=== PATIENT | male | born 1985 | race Caucasian/White ===

== ENCOUNTER 2025-03-17 14:45 | Emergency (ER) | payer MEDICAID, SELFPAY ==
[2025-03-17 14:46] VITALS: BMI 24.5
--- NOTE | 2025-03-17 15:21 | XR_ITS ---
Examination: Duplex scan of the lower extremity, unilateral left Date and time of exam: March 17, 2025 1532 hours INDICATIONS: Left leg swelling and pain beginning 2 days ago Technique: Duplex scan of the extremity veins using B-mode/grayscale imaging and Doppler spectral analysis and color flow Attention is directed to internal echogenicity, compression and augmentation involving these veins, color flow assessment, spectral analysis Findings: Major deep venous structures in the extremity demonstrate normal course and caliber. There is no evidence of deep vein thrombosis. Normal color flow and spectral analysis Impression: Negative for DVT..
[2025-03-17 15:25] VITALS: BP 127/84; PULSE 86; RESP 18; TEMP 36.8; O2SAT 98
--- NOTE | 2025-03-17 18:56 | PD.EDADDENDU ---
Emergency Room Addendum Addendum Narrative: When I looked for the patient to start my evaluation, I was told the patient eloped. Cristian Phoenix MD
== END 2025-03-17 21:15 | disposition left against medical advice (07) ==
PROVIDERS: Emergency Provider Emergency Medicine; PCP Family Medicine
DX: Z53.29 Procedure and treatment not carried out because of patient's decision for other reasons (principal); M79.89 Other specified soft tissue disorders; M79.605 Pain in left leg
CPT/HCPCS: 93971; 99283

== ENCOUNTER 2025-03-18 14:20 | Emergency (ER) | payer MEDICAID, SELFPAY ==
[2025-03-18 14:28] VITALS: BP 109/77; PULSE 96; RESP 18; TEMP 36.7; O2SAT 97; BMI 23.5
--- NOTE | 2025-03-18 14:42 | EDNOTE_ITS ---
<Statement entered by Meggan Padron MD - 03/28/25 11:10> As co-signing physician, I was present and available for consult prn. I concur with the plan and care as documented by the midlevel provider. Lower Extremity Injury RME/HPI General Stated Complaint: L LEG PAIN Time Seen by Provider: 03/18/25 14:28 Arrival date/time: 03/18/25 14:20 39-year-old male possible complaints of sudden onset of left knee pain. Patient reports no injury to the knee recently but states that he rode bikes often and fell often on those legs in the past. He states the pain increases with walking and he is noticing swelling but no bruising no numbness or tingling or loss of range of motion. Patient states that he has not taken any medications for it. Patient has been using a knee brace which offer some support but no relief of pain Limitations: no limitations Related Data Previous Rx's ?Medication ?Instructions ?Recorded amoxicillin 875 mg-potassium 1 tab PO BID #8 tabs 12/02 clavulanate 125 mg tablet (Augmentin) benzonatate 100 mg capsule 100 mg PO TID #14 caps 02/13 11/06 albuterol sulfate 90 mcg/actuation 2 inh inhalation Q6 H #1 ea 03/08/24 breath activated powder inhaler,sensor (Proair Digihaler) meloxicam 7.5 mg tablet 7.5 mg PO QDAY PRN pain #30 tabs 03/18/25 Allergies Allergy/AdvReac Type Severity Reaction Status Date / Time No Known Allergies Allergy Verified 03/17/25 14:48 Review of Systems Constitutional Constitutional: Denies chills and Denies fever(s) Musculoskeletal Musculoskeletal: Reports arthralgias, Reports joint swelling, Denies numbness, Denies stiffness and Denies tingling Integumentary/Breasts Skin/Breast: Denies unusual bruising and Denies wounds Neurologic Neurologic: Denies numbness and Denies tingling Past Medical History Past Medical History CARDIAC: Negative Cardiac Disorders or Congestive Heart Failure RESPIRATORY: Positive Asthma; Negative Chronic Obstructive Pulmonary Disease (COPD) GENITOURINARY: Negative Renal Disease ENDOCRINE: Negative Diabetes Mellitus Type 1 or Diabetes Mellitus Type 2 HEMATOLOGIC: Negative Sickle Cell Disease Social History SMOKING STATUS: Former smoker SECOND HAND EXPOSURE: No ED Exam General Limitations: Present no limitations General appearance: Present alert and in no apparent distress Extremities Exam Extremities exam: Present normal inspection and full ROM Expanded Lower Extremity Exam Upper leg exam: Present normal inspection and full ROM Knee exam: Present normal inspection, full ROM, tenderness (Medial and lateral left patella) and crepitus (Left); Absent swelling, ecchymosis, deformity, erythema, effusion, anterior drawer sign, posterior draw sign or laxity with varus Lower leg exam: Present normal inspection and full ROM Ankle exam: Present normal inspection, full ROM and other (Antalgic gait) Neurological Exam Neurological exam: Present alert, oriented X3 and CN II-XII intact Psychiatric Psychiatric exam: Present normal affect and normal mood Skin Skin exam: Present warm, dry, intact and normal color Course Course Course Narrative: [facility] [address] [place] [address] [place] [facility] Report Signed Patient: JOCELYNE HORVATH. Record#: [id number] Birthdate: 1985 Age/Sex: 39 / M Location: [facility] Attending Dr: Ordering Physician: Kristian Mckenna PA-C Date of Service: 03/18/25 Procedure(s): XR knee LT 3V Accession Number(s): [id number] cc: Real Valdez MD; Kristian Mckenna PA-C~ Examination: Knee, left , 3 views Technique: Knee AP, lateral, oblique 3 views Date and time of exam: March 18, 2025 1445 hours INDICATIONS: Patient fell 3 days ago with injury to the knee, knee pain. FINDINGS: No fracture or dislocation. No significant arthritic change. IMPRESSION: No fracture or dislocation. Dictated By: Real Valdez MD Signed By: <Electronically signed by Real Valdez MD in OV> 03/18/25 1459 DD/ 1458 TD/TT: 03/18/25 145 [employer] Operator: SONI Quality Measures none Orders Category Date Time Status XR knee LT 3V Stat Exams 03/18/25 14:49 Completed Ketorolac Inj [Toradol Inj] Med 03/18/25 14:41 Discontinued 30 mg IM X1 ONE Vital Signs Vital signs: Vital Signs Temperature 98.1 F 03/18/25 14:28 Pulse Rate 96 03/18/25 14:28 Respiratory Rate 18 03/18/25 14:28 Blood Pressure 109/77 03/18/25 14:28 Pulse Oximetry (%) 97 03/18/25 14:28 Oxygen Delivery Method Room Air 03/18/25 14:28 Extremity Injury, Lower Patient data External records reviewed:: None Clinical information provided by:: patient Social determinants that could affect healthcare access:: none Patient has the following chronic illnesses:: none How is presenting disease/condition affected by chronic disease/condition?: no chronic disease Evaluation data The following diagnostics were reviewed and interpreted by me:: radiology exam(s) Lab and/or radiology exams considered but not ordered:: none Interpretation Summary: negative for fracture, dislocation or arthritic changes Medications / Prescriptions Medications or Prescriptions considered but not ordered:: none Medication administrations:: Medication Administration History Discontinued Medications Ketorolac Tromethamine (Ketorolac Inj 60 Mg/2 Ml Vial) 30 mg IM X1 ONE Stop: 03/18/25 14:42 Last Admin: 03/18/25 14:59 Dose: 30 mg Documented By: As above Consultations Consultation(s) initiated? (list below): No Diagnosis Most likely diagnosis given after review of the tests above:: left knee pain Admission Indicated Admission indicated?: not indicated Admission Request Was there a request for admission?: No Disposition Plan Disposition Plan: Discharge Discharge Attestation Discharge Attestation: The patient and all family members were given an opportunity to ask questions a nd understood the discharge instructions. Discharge instructions specifically effects, indications for sooner follow up or return to the emergency department, and the expected course of current diagnosis. Patient condition: Stable Discharge Plan Plan Patient Disposition: HOME (Self Care) Prescriptions/Referrals Prescriptions/Med Rec: New meloxicam 7.5 mg tablet 7.5 mg PO QDAY PRN (Reason: pain) Qty: 30 0RF No Action amoxicillin-pot clavulanate [Augmentin] 875-125 mg tablet 1 tab PO BID Qty: 8 0RF benzonatate 100 mg capsule 100 mg PO TID Qty: 14 0RF Proair Digihaler 90 mcg/actuation aero powdr breath act w/sensor 2 inh inhalation Q6H Qty: 1 0RF Problem List Clinical Impression: Knee pain, left Patient/Caregiver Discharge Instructions Discharge Activity: activity as tolerated Education Materials: ED Pain, Acute, Uncertain Cause Additional Instructions: Your x-rays are normal your Doppler study from yesterday was also normal no blood clots were found. Your knee pain could be caused by injury to the ligaments and tendons you should follow-up with your primary care provider for possible MRI of the knee continue to wear the knee brace for support while walking take medications as directed follow-up with your primary care provider Print Language: Pakistani Stand Alone Forms: Dana Award Info., Patient Portal Info Letter
--- NOTE | 2025-03-18 14:49 | XR_ITS ---
Examination: Knee, left , 3 views Technique: Knee AP, lateral, oblique 3 views Date and time of exam: March 18, 2025 1445 hours INDICATIONS: Patient fell 3 days ago with injury to the knee, knee pain. FINDINGS: No fracture or dislocation. No significant arthritic change. IMPRESSION: No fracture or dislocation.
[2025-03-18] MEDS: KETOROLAC INJ 60 MG/2 ML VIAL 30 MG IM (14:59)
== END 2025-03-18 15:05 | disposition home or self-care (01) ==
LOC: SERX 16:14
PROVIDERS: Emergency Provider Emergency Medicine
DX: M25.562 Pain in left knee (principal)
CPT/HCPCS: 73562; 96372; 99283; J1885